=== PATIENT | male | born 1990 | race Hispanic/Latino ===

== ENCOUNTER 2017-05-18 22:06 | Emergency (ER) | payer BC ==
[2017-05-18 22:13] VITALS: TEMP 98
[2017-05-18] MEDS ORDERED: Sodium Chloride 0.9% 1,000 ML IV STA (22:26)
--- NOTE | 2017-05-18 22:29 | ED PDOC ---
HPI: Hypertension/Hypotension Time Seen by Provider: 05/18/17 22:12 Chief Complaint (Nursing): Chest Pain Chief Complaint (Provider): palpitations History Per: Patient History/Exam Limitations: no limitations Onset/Duration Of Symptoms: Hrs Current Symptoms Are (Timing): Better Associated Symptoms: Chest Pain, Dyspnea, Dizziness Quality Of Symptoms: Rapid Heart Rate Additional History Per: Patient Additional Complaint(s): 26 y/o male presents for eval of palpitations x 4 hours. Patient states he was sitting down when he states he "didn't feel right" and feeling "anxious". He noted rapid heart rate and nausea with tingling of upper extremities. Patient states he threw up 3 times and then tried to shower but felt lightheaded while showering like he was going to pass out so he called 911. Patient states he drank "more than usual" last night. Denies fever, headache, dizziness, vision changes, extremity weakness, abdominal pain, leg pain/swelling, drug use. Past Medical History Reviewed: Historical Data, Nursing Documentation, Vital Signs Vital Signs: Last Vital Signs Temp 98 F 05/18/17 22:09 Pulse 125 H 05/18/17 22:09 Resp 20 05/18/17 22:09 BP 145/91 H 05/18/17 22:09 Pulse Ox 98 05/18/17 22:09 - Medical History PMH: No Chronic Diseases - Surgical History Surgical History: No Surg Hx - Family History Family History: States: Unknown Family Hx - Allergies Allergies/Adverse Reactions: Allergies Allergy/AdvReac Type Severity Reaction Status Date / Time No Known Allergies Allergy Verified 05/18/17 22:09 Review of Systems ROS Statement: Except As Marked, All Systems Reviewed And Found Negative Cardiovascular: Positive for: Chest Pain, Palpitations Gastrointestinal: Positive for: Nausea Neurological: Positive for: Dizziness Physical Exam - Reviewed Nursing Documentation Reviewed: Yes Vital Signs Reviewed: Yes - Physical Exam Appears: Positive for: Well, Non-toxic, Uncomfortable (anxious) Head Exam: Positive for: ATRAUMATIC, NORMAL INSPECTION, NORMOCEPHALIC Skin: Positive for: Normal Color Eye Exam: Positive for: Normal appearance, EOMI, PERRL ENT: Positive for: Normal ENT Inspection Cardiovascular/Chest: Positive for: Regular Rate, Rhythm Respiratory: Positive for: Normal Breath Sounds Gastrointestinal/Abdominal: Positive for: Normal Exam Back: Positive for: Normal Inspection Extremity: Positive for: Normal ROM Neurologic/Psych: Positive for: Alert, Oriented - Laboratory Results Result Diagrams: 05/18/17 23:06 05/18/17 23:06 - ECG ECG: Positive for: Viewed By Me (reviewed by Ed attending) ECG Rhythm: Positive for: Sinus Tachycardia O2 Sat by Pulse Oximetry: 98 Pulse Ox Interpretation: Normal - Radiology X-Ray: Viewed By Me X-Ray Interpretation: No Acute Disease - Progress ED Course And Treament: labs, ekg, chest xray, urine, IV fluids On re-eval, patient states he is feeling better. Vital signs improved. Patient educated on elevated liver tests, advised follow up PMD. Potassium PO given for 3.4 level. Advised fluids. Rest. Return to ED for worsening/concerning symptoms. Disposition - Clinical Impression Clinical Impression: Palpitations, Elevated liver function tests - Patient ED Disposition Is Patient to be Admitted: No Counseled Patient/Family Regarding: Studies Performed, Diagnosis, Need For Followup - Disposition Referrals: Samuel Sierra MD [Staff Provider] - Disposition: Routine/Home Disposition Time: 00:10 Condition: IMPROVED Additional Instructions: Follow up with primary doctor in 2-3 days. Drink plenty of fluids. Return to ED for worsening/concerning symptoms. Instructions: Palpitations (ED), Anxiety (ED)
[2017-05-18 23:11] LABS: BASO % 0.5 % (0.0-2.0); EOS # 0.1 K/uL (0.0-0.7); EOS % 0.8 % (0.0-4.0); HEMOGLOBIN 15.9 g/dL (12.0-18.0); LYMPH # 3.2 K/uL (1.0-4.3); LYMPH % 37.2 % (20.0-40.0); MEAN CELL VOLUME 84.3 fl (80.0-94.0); MEAN CORPUSCULAR HEMOGLOBIN 28.9 pg (27.0-31.0); MEAN CORPUSCULAR HGB CONC 34.2 g/dL (33.0-37.0); MEAN PLATELET VOLUME 8.3 fl (7.2-11.7); MONO # 0.7 K/uL (0.0-0.8); MONO % 7.9 % (0.0-10.0); NEUT # 4.7 K/uL (1.8-7.0); NEUT % 53.6 % (50.0-75.0); NRBC % 0.1 % (0.0-0.0); RBC 5.51 Mil/uL (4.40-5.90); RED CELL DISTRIBUTION WIDTH 13.1 % (11.5-14.5); WHITE BLOOD COUNT 8.7 K/uL (4.8-10.8)
[2017-05-18 23:18] LABS: ALB/GLOB RATIO 1.6 (1.0-2.1); ALT/SGPT 155 U/L (21-72); AST/SGOT 79 U/L (17-59); BLOOD UREA NITROGEN 16 mg/dl (9-20); CALCIUM 9.9 mg/dL (8.4-10.2); GFR AFRICAN-AMERICAN > 60; GFR NON-AFRICAN AMERICAN > 60
[2017-05-18] MEDS ORDERED: Potassium Chloride 20 mEq ER Tab PO ONE ×2 (23:37→23:45)
[2017-05-19 00:08] VITALS: BP 115/67; PULSE 93; RESP 16
[2017-05-19 00:11] VITALS: O2SAT 98
--- NOTE | 2017-05-19 09:49 | RAD ---
HISTORY: chest pain, sob COMPARISON: No prior. TECHNIQUE: Chest PA and lateral FINDINGS: LUNGS: Poor inspiration with low lung volumes and suspected minimal bibasilar atelectasis. Interstitial markings are also somewhat increased and coarsened ; rule out sequela of reactive/ inflammatory airway disease or viral illness. PLEURA: No significant pleural effusion identified. No pneumothorax apparent. CARDIOVASCULAR: Normal. OSSEOUS STRUCTURES: No significant abnormalities. VISUALIZED UPPER ABDOMEN: Normal. OTHER FINDINGS: None. IMPRESSION: Poor inspiration with low lung volumes and suspected minimal bibasilar atelectasis. Interstitial markings are also somewhat increased and coarsened ; rule out sequela of reactive/ inflammatory airway disease or viral illness.
--- NOTE | 2017-05-22 06:58 | CARD ---
APPROVED REPORT EKG Measurement Heart [id number] <Conclusion> Sinus tachycardia Otherwise normal ECG
== END 2017-05-19 00:09 | disposition home or self-care (01) ==
LOC: H.ER 22:06
DX: R00.2 Palpitations (principal); F41.9 Anxiety disorder, unspecified; I10 Essential (primary) hypertension
CPT/HCPCS: 71020; 80053; 84443; 84484; 85025; 96360; 99282; J7040